=== PATIENT | female | born 1980 | race Caucasian/White ===

== ENCOUNTER 2016-09-29 15:25 | Outpatient (CLI) | payer OTHER | END 2016-09-29 15:26 | disposition home or self-care (01) | LOC: NC 15:25 | PROVIDERS: ATTEND Nurse Practitioner Family | DX: Z71.3 Dietary counseling and surveillance (principal); R53.83 Other fatigue ==

== ENCOUNTER 2016-10-29 15:12 | Outpatient (CLI) | payer OTHER | END 2016-10-29 15:13 | disposition home or self-care (01) | LOC: NC 15:12 | PROVIDERS: ATTEND Nurse Practitioner Family | DX: R53.83 Other fatigue (principal); Z71.3 Dietary counseling and surveillance; E66.9 Obesity, unspecified; Z68.42 Body mass index [BMI] 45.0-49.9, adult; F17.200 Nicotine dependence, unspecified, uncomplicated ==

== ENCOUNTER 2016-11-26 14:48 | Emergency (ER) | payer OTHER ==
[2016-11-26] MEDS ORDERED: SODIUM CHLORIDE 0.9% 1,000 ML ONE (15:57)
[2016-11-26 16:04] LABS: ABSOLUTE NEUTROPHIL COUNT 8.5 K/mm3 (1.8-7.7); BASO # 0.1 K/mm3 (0.0-0.2); BASO % 0.6 % (0.2-1.0); EOS # 0.5 (0.0-0.5); EOS % 4.1 % (0.9-2.9); HEMATOCRIT 41.5 % (37.0-47.0); HEMOGLOBIN 13.9 gm/l (12.0-16.0); IMM NEUT # 0.2 K/mm3 (0-0.2); IMM NEUT% 1.5 % (0-1); LYMPH # 2.5 (1.0-4.8); LYMPH % 19.9 % (15-45); MEAN CELL VOLUME 95.8 fl (81.0-99.0); MEAN CORPUSCULAR HEMOGLOBIN 32.1 pg (27.0-31.0); MEAN CORPUSCULAR HGB CONC 33.5 g/dl (33.0-37.0); MEAN PLATELET VOLUME 10.4 fl (7.4-10.4); MONO # 0.8 (0.0-0.8); MONO % 6.4 % (4-12); NEUT % 67.5 % (43-75); PLATELET COUNT 237 K/mm3 (130-400); RED CELL DISTRIBUTION WIDTH 12.7 % (11.5-14.5)
[2016-11-26 16:18] LABS: ALB/GLOB RATIO 1.6 (>1.0); ALBUMIN 4.2 gm/dL (3.5-5.7); CALCIUM 9.7 mg/dL (8.6-10.3)
== END 2016-11-26 16:47 | disposition home or self-care (01) ==
LOC: ED 14:48
DX: I10 Essential (primary) hypertension (principal); R51 Headache; E11.9 Type 2 diabetes mellitus without complications; Z79.84 Long term (current) use of oral hypoglycemic drugs
CPT/HCPCS: 85025; 80053; 99283 ×2; 96360; 93005; J7030

== ENCOUNTER 2016-12-15 13:51 | Outpatient (CLI) | payer OTHER | END 2016-12-15 13:52 | disposition home or self-care (01) | LOC: NC 13:51 | PROVIDERS: ATTEND Nurse Practitioner Family | DX: E66.9 Obesity, unspecified (principal) ==